=== PATIENT | male | born 2005 | race Caucasian/White ===

== ENCOUNTER 2023-09-23 07:06 | Day surgery (SDC) | payer SELFPAY ==
--- NOTE | 2023-09-22 10:15 | P.HPOR ---
History of Present Illness H&P Date: 09/22/23 Subjective: This is a 18 year old male that presents today for initial evaluation regarding a right hand injury that occurred on 09/11/2023 when he tripped on concrete and landed onto a clenched fist and had immediate pain and swelling and bruising. He was seen at [facility] emergency room and was placed in a splint. 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 He denies any injury to this hand in the past. Physical Examination: RUE: AIN/PIN/Radial/Ulnar/Median motor intact. Radial/Ulnar/Median SILT. 2+/4 Radial/Ulnar pulses palpated. 5/5 APB, 5/5 FDI. Bruising and swelling present with deformity present over 5th metacarpal shaft. Imaging: X-Rays of the right hand 3V taken in office today demonstrate a 5th metacarpal shaft fracture with 20% dorsal displacement and 40 degrees of volar angulation. Impression: 1.) Right 5th metacarpal shaft fracture, displaced. Plan: Diagnosis and treatment options were discussed with the patient. We discussed his fracture angulation is outside the acceptable limits for his fifth metacarpal shaft fracture. We discussed conservative treatment vs surgical treatment. I recommend surgical intervention in the form of a right fifth metacarpal shaft open reduction internal fixation with intramedullary screw fixation. We discussed this will allow him to get back to work sooner and will allow for immediate range of motion and weightbearing. I anticipate 10 days off of work post operatively, this can be extended if needed. He is placed in a new ulnar gutter brace. The patient was agreeable with this plan. -Brady Doran DO Orthopedic Hand/Upper Extremity Surgeon Past Medical History Past Medical History: No Reported History History of Any Multi-Drug Resistant Organisms: None Reported Past Surgical History: Orthopedic Surgery Additional Past Surgical History / Comment(s): Lt. hand repair 2017 Past Anesthesia/Blood Transfusion Reactions: No Reported Reaction Smoking Status: Never smoker Medications and Allergies Home Medications Medication Instructions Recorded Confirmed Type Ibuprofen [Advil] 200 mg PO Q6HR PRN 09/21/23 09/21/23 History Allergies Allergy/AdvReac Type Severity Reaction Status Date / Time No Known Allergies Allergy Verified 09/21/23 14:06 Physical Examination Osteopathic Statement: *. No significant issues noted on an osteopathic structural exam other than those noted in the History and Physical/Consult.
[2023-09-23] MEDS: ONDANSETRON 4 MG/2 ML VIAL IVP PRN (07:58)
[2023-09-23] MEDS: DEXAMETHASONE SOD PHOSPHATE 4 MG/ML 1 ML VIAL IVP STA (07:59)
[2023-09-23] MEDS: LACTATED RINGERS 1,000 ML IV SCH (08:00)
[2023-09-23] MEDS: IV FLUID CONTINUATION 1,000 ML IV ONE (08:05)
[2023-09-23] MEDS ORDERED: ePHEDrine 50 MG/ML 1 ML VIAL ONE (08:58)
[2023-09-23] MEDS ORDERED: KETOROLAC 15 MG/ML 1 ML VIAL ONE (08:58)
[2023-09-23] MEDS ORDERED: WATER FOR INJECTION, STERILE 10 ML VIAL IV ONE (08:58)
[2023-09-23] MEDS ORDERED: PROPOFOL 10 MG/ML 20 ML VIAL IV ONE (08:58)
[2023-09-23] MEDS ORDERED: fentaNYL (PF) 50 MCG/ML 2 ML AMP ONE (08:58)
[2023-09-23] MEDS ORDERED: LIDOCAINE 1% INJ 10MG/ML (20 ML MDV) ONE (08:58)
[2023-09-23] MEDS ORDERED: MIDAZOLAM 2 MG/2 ML VIAL ONE (08:58)
[2023-09-23] MEDS: BUPIVACAINE (PF) 0.5% 30 ML VIAL SQ ONE (09:45)
[2023-09-23 10:05] VITALS: TEMP 97.2
--- NOTE | 2023-09-23 10:08 | P.OP ---
Date of Procedure: 09/23/23 Preoperative Diagnosis: Right 5th metacarpal shaft fracture Postoperative Diagnosis: Right 5th metacarpal shaft fracture Procedure(s) Performed: Right 5th metacarpal shaft fracture open reduction internal fixation Implants: [place] 4.0x 46mm Headless compression screw Surgeon: Brady Doran Estimated Blood Loss (ml): 0 Pathology: none sent Condition: stable Disposition: PACU Description of Procedure: This is a 18 year old male who sustained a significantly angulated right 5th metacarpal shaft fracture and presents today for surgical intervention. Risks and benefits of surgery were discussed with the patient including bleeding, damage to surrounding tissue, infection, need for further surgery as well as risks of anesthesia including pulmonary embolism and even and the patient wished to proceed with surgical intervention. The patient was seen in the pre- operative area by myself. Consent and H&P were completed and updated. The correct extremity was marked in the pre-operative area by myself and all other questions were answered. Operative Narrative: The patient was brought to the operating room by the department of anesthesia. They remained on the portable stretcher and a rolling hand table was brought to the side of the operative extremity. Pre-operative time out was performed indicating the correct patient, procedure and laterality. All in the room agreed. Pre-operative antibiotics were given prior to skin incision. The patient was then drifted off to sleep by the department of anesthesia. A nonsterile tourniquet was then applied to the operative extremity and the right upper extremity was then prepped and draped in normal sterile fashion. The operative extremity was the exsanguinated with an esmarch bandage and the tourniquet was inflated to 250mmHg. Reduction Maneuver was performed and acceptable reduction was achieved and confirmed under fluoroscopy. Longitudinal incision was made of the small finger MCP joint. Blunt dissection was taken down through subcutaneous tissues and the interval between the EDM and EDC to the small finger was incised with a scalpel. Longitudinal incision in the capsule was made and retractors were placed to protect the extensor tendons. A K-wire was then inserted on the dorsal aspect of the metacarpal head and advanced in retrograde fashion and advanced through the cortex of the 5th CMC joint. Intramedullary placement was confirmed on imaging. A drill was then used to perforated the near cortex and screw measurement was made by placing the screw over the bone on imaging. A raman 4.0mm x 46mm headless compression screw was then inserted over the guidewire and good compression and bite was appreciated as it was advanced. Rotation of the digit was checked and was found to be inline with the normal cascade of all digits. The wound was then irrigated. Skin closure was performed with 4-0 nylon sutures. Soft dressing was applied to the hand the tourniquet was let down and the hand had immediate perfusion. The patient was then woken by the department of anesthesia and transferred to PACU in stable condition. Brady Doran D.O. Orthopedic Hand/Upper Extremity Surgeon
[2023-09-23 10:18] VITALS: RESP 16
[2023-09-23] MEDS: HYDROcodone/APAP 5-325MG 1 EACH TAB PO PRN (11:11)
[2023-09-23 12:21] VITALS: BP 115/67; PULSE 76
== END 2023-09-23 12:00 | disposition home or self-care (01) ==
LOC: OR 07:06
PROVIDERS: ATTEND Orthopaedic Surgery Hand Surgery
DX: S62.326A Displaced fracture of shaft of fifth metacarpal bone, right hand, initial encounter for closed fracture (principal); W01.0XXA Fall on same level from slipping, tripping and stumbling without subsequent striking against object, initial encounter
CPT/HCPCS: 26615; C1713; J2250; J1100; J0690; J2405; J2001; J3010; J1885; J2704; J0665